=== PATIENT | female | born 1960 | race Caucasian/White ===

== ENCOUNTER 2018-10-23 11:05 | Day surgery (SDC) | payer MEDICAID ==
[2018-10-15 11:33] LABS: BASOPHILS # (AUTO) 0.1 X10'3 (0-0.2); BASOPHILS % (AUTO) 1.1 % (0-1); EOSINOPHILS % (AUTO) 0.6 % (0-6); LYMPHOCYTES # (AUTO) 2.1 X10'3 (1.1-4.8); LYMPHOCYTES % (AUTO) 27.7 % (21-51); MEAN CORPUSCULAR HEMOGLOBIN 30.2 PG (27.0-31.0); MEAN CORPUSCULAR HGB CONC 34.2 g/dL (33.0-36.5); MEAN CORPUSCULAR VOLUME 88.2 FL (78-98); MEAN PLATELET VOLUME 8.3 FL (7.4-10.4); MONOCYTES # (AUTO) 0.4 X10'3 (0-0.9); MONOCYTES % (AUTO) 5.7 % (2-12); NEUTROPHILS % (AUTO) 64.9 % (42-75); PRE OP HEMATOCRIT 44.1 % (35.0-45.0); PRE OP HEMOGLOBIN 15.1 g/dL (12.0-16.0); PRE OP PLATELET COUNT 346 X10'3 (140-440); RED BLOOD COUNT 5.01 X10'6 (4.20-5.60); RED CELL DISTRIBUTION WIDTH 12.9 % (11.5-14.5)
[2018-10-15 11:46] LABS: ALBUMIN 4.2 G/DL (3.4-5.0); ALBUMIN/GLOBULIN RATIO 1.1 (1.1-1.5); ALKALINE PHOSPHATASE 93 IU/L (46-116); BLOOD UREA NITROGEN 13 MG/DL (7-18); BUN/CREATININE RATIO 15.5 (6.6-38.0); CALCIUM 9.6 MG/DL (8.5-10.1); CHLORIDE 105 MMOL/L (99-107); CREATININE 0.84 MG/DL (0.40-0.90); PRE OP ALT 29 U/L (30-65); PRE OP ANION GAP 11 (8-16); PRE OP AST 12 U/L (10-37); PRE OP BILIRUB, TOTAL 0.5 MG/DL (0.0-1.0); PRE OP GLUCOSE 97 MG/DL (70-104); PRE OP POTASSIUM 4.2 MMOL/L (3.4-5.1); PRE OP SODIUM 142 MMOL/L (135-145); TOTAL CARBON DIOXIDE 26.5 MMOL/L (24-32); TOTAL PROTEIN 7.9 G/DL (6.4-8.2); eGFR 70 ML/MIN
[2018-10-15 11:47] LABS: HEMOGLOBIN A1C 5.5 % (4.5-6.2)
[~2018-10-23] VITALS: Ht 167.6 cm; Wt 102.1 kg
[2018-10-23] VITALS (10 sets, daily range): BP systolic 128–138; BP diastolic 67–85
[~2018-10-23 11:05] MED LIST: HYDR12.55 PO; LISI40TA4 PO; SIMV20TA5 PO; famotidine 20mg tablet PO ONE; ringers solution, lacted 1,000 ML IV SCH
[2018-10-23] MEDS ORDERED: clindamycin-Cleocin 900mg/D5W 50 ML IV ONE (11:15)
[2018-10-23] MEDS ORDERED: dextrose 5%-lactated ringers 1,000 ML IV SCH (12:00)
[2018-10-23] MEDS ORDERED: triamcinolone acetonide 40mg/ml inj ONE (13:02)
[2018-10-23] MEDS ORDERED: BUPIVAcaine/PF 2.5 mg/ml (0.25%) 30ml vial ONE (13:02)
--- NOTE | 2018-10-23 13:15 | NUR ---
(1200) ACCUCHECK 68. PT ASYMPTOMATIC. DR GARCIA AT BEDSIDE. D5LR @ 200MLS/HR ORDERED AND INITIATED. (1315) ACCUCHECK 117. DR GARCIA NOTIFIED, D5LR DECREASED TO 30MLS/HOUR. PT WITH NO CURRENT COMPLAINTS Addendum: 10/23/18 at 1342 by Becki Guillaume RN Amended: Links added.
[2018-10-23] MEDS ORDERED: dexamethasone sod phosphate 10mg/ml inj ONE (13:37)
[2018-10-23] MEDS ORDERED: sevoflurane 250ml liquid IH ONE (13:37)
[2018-10-23] MEDS ORDERED: fentaNYL/PF 50MCG/1 ML 2ML syringe ONE (13:37)
[2018-10-23] MEDS ORDERED: midazolam 2 mg/2 ml injection ONE (13:38)
[2018-10-23] MEDS ORDERED: propofol inj 20 ML IV ONE (13:40)
[2018-10-23] MEDS ORDERED: LIDOcaine 1%/PF 5ML 10 MG/ML VIAL ONE (13:40)
[2018-10-23] MEDS ORDERED: ringers solution, lacted 1,000 ML IV SCH (14:06)
[2018-10-23] MEDS ORDERED: proCHLORperazine 10 MG/2 ml inj IV PRN (14:10)
[2018-10-23] MEDS ORDERED: ondansetron/PF 4mg/2ml inj IV PRN (14:10)
[2018-10-23] MEDS ORDERED: meperidine/PF 25mg/ml syringe IV PRN ×3 (14:10)
[2018-10-23] MEDS ORDERED: morphine 4 MG/ML inj SYRINge IV PRN ×2 (14:10)
[2018-10-23] MEDS ORDERED: ondansetron/PF 4mg/2ml inj ONE (14:23)
[2018-10-23] MEDS ORDERED: ketorolac trometh. 30mg/ml inj. ONE (14:23)
--- NOTE | 2018-10-23 14:37 | NUR ---
Received from OR via [place], accompanied by Anesthesiologist DR GARCIA and report given by Anesthesiologist. PT DROWSY, DENIES PAIN, LEFT KNEE W/WILIAN WRAP COVERING INCISION CDI. Addendum: 10/23/18 at 1503 by Patricia Mendoza RN Amended: Links added.
[2018-10-23] MEDS ORDERED: HYDROcodone/acetaminophen 5mg/325mg tablet PO ONE (15:30)
--- NOTE | 2018-10-23 16:07 | NUR ---
D'C INSTRUCTIONS GIVEN AND GONE OVER W/PT AND PTS SISTER, BOTH VERBALIZE UNDERSTANDING, PT D/CD VIA W/C TO PRIVATE VEHICLE W/O INCIDENT. Addendum: 10/23/18 at 1711 by Patricia Mendoza RN Amended: Links added.
== END 2018-10-23 16:07 | disposition home or self-care (01) ==
LOC: PAS 11:05
PROVIDERS: ATTEND Orthopaedic Surgery
DX: S83.272A Complex tear of lateral meniscus, current injury, left knee, initial encounter (principal); S83.242A Other tear of medial meniscus, current injury, left knee, initial encounter; M94.262 Chondromalacia, left knee; M23.042 Cystic meniscus, anterior horn of lateral meniscus, left knee; I10 Essential (primary) hypertension; E78.5 Hyperlipidemia, unspecified; E11.51 Type 2 diabetes mellitus with diabetic peripheral angiopathy without gangrene; G43.909 Migraine, unspecified, not intractable, without status migrainosus; M17.11 Unilateral primary osteoarthritis, right knee; E66.01 Morbid (severe) obesity due to excess calories; Z68.36 Body mass index [BMI] 36.0-36.9, adult; F17.210 Nicotine dependence, cigarettes, uncomplicated; X58.XXXA Exposure to other specified factors, initial encounter; Y93.89 Activity, other specified; Y92.89 Other specified places as the place of occurrence of the external cause; Y99.8 Other external cause status; Z88.0 Allergy status to penicillin; Z79.899 Other long term (current) drug therapy
CPT/HCPCS: 27347; 29873; 29879; 29880; 36415; 80053; 82948; 83036; 85025; 93005; J1100; J1885; J2250; J2405; J2704; J3010; J3301; J3490; J7120; J7121; A4215; A4618; A6250; A6449; A7000